=== PATIENT | male | born 1935 | race Caucasian/White ===

== ENCOUNTER 2017-09-03 14:17 | Emergency (ER) | payer OTHER ==
[~2017-09-03] VITALS: Ht 177.8 cm; Wt 102.2 kg
[~2017-09-03 14:17] MED LIST: ADULT LOW STREN81 M3 PO; ASCORBIC ACID500 M3 PO; ASPIRIN E.C.81 M1 PO; ASPIRIN325 MG PO; Aspirin E.C. PO; CLEOCIN300 MG PO; DICLOFENAC SODI75 MG PO; Dilaudid PO; FERROUS SULFAT325 MG PO; FOLIC ACID0.4 MG PO; FUROSEMIDE20 MG PO; HYTRIN2 MG PO; Hytrin PO; IMDUR30 MG PO; LASIX20 MG PO; LO-DOSE ASPIRIN81 M1 PO; LOPRESSOR100 M1 PO; Lasix PO; Lopid PO; Lopressor PO; MAGNESIUM250 MG PO; METFORMIN HCL500 MG PO; METOPROLOL TART25 MG PO; NATURAL B-1001 EACH PO; NEURONTIN300 MG PO; NITROSTAT0.4 MG SL; OxyCONTIN PO; PHENERGAN25 MG/ML IM; POTASSIUM CHLO20 ME2 PO; PREDNISONE20 M1 PO; PROMETHAZINE HC25 M1 PO; SIMVASTATIN20 MG PO; TRAMADOL HCL50 MG PO; TUMS500 MG PO; TYLENOL REGULA325 MG PO; VASOTEC10 MG PO; VITAMIN D31000 UNIT PO; Vasotec PO; Vitamin D, Drisdol PO; oxyCODONE PO
[2017-09-03 16:40] VITALS: BP 146/86
== END 2017-09-03 16:41 | disposition home or self-care (01) ==
LOC: EME 14:17
DX: S00.03XA Contusion of scalp, initial encounter (principal); W00.0XXA Fall on same level due to ice and snow, initial encounter; Z79.82 Long term (current) use of aspirin; E11.9 Type 2 diabetes mellitus without complications; Z79.84 Long term (current) use of oral hypoglycemic drugs; I10 Essential (primary) hypertension; J44.9 Chronic obstructive pulmonary disease, unspecified; I25.2 Old myocardial infarction; Z95.5 Presence of coronary angioplasty implant and graft; Z88.0 Allergy status to penicillin; Z91.040 Latex allergy status; Z87.891 Personal history of nicotine dependence
CPT/HCPCS: 70450; 99281; 99283